=== PATIENT | male | born 1945 | race Caucasian/White ===

== ENCOUNTER 2024-03-11 14:03 | Outpatient (AMB) | payer OTHER, SELFPAY ==
--- NOTE | 2024-03-11 14:12 | A.OFFVIS_ITS ---
Vital Signs 03/11/24 14:21 Height 5 ft 10 in Weight 168 lb BMI 24.1 BP 138/84 Blood Pressure Location Rt brachial Position Sitting Intake Visit Reasons: ENP-Parkinson's Intake Note: Patient presents for parkinson's Medication List - Last Reconciled 03/11/24 by Minnie Mas MD acetaminophen 500 mg PO Q6H PRN bupropion HCl SR PO carbidopa-levodopa 50-200 mg ER 2 tabs PO QID cholecalciferol (vitamin D3) 50 mcg PO DAILY cyanocobalamin (vitamin B-12) 500 mcg PO DAILY docusate sodium 100 mg PO BID folic acid 1 mg PO DAILY lithium carbonate 300 mg PO BEDTIME lithium carbonate ER 450 mg PO BEDTIME loratadine 10 mg PO DAILY magnesium oxide 420 mg PO BID melatonin 3 mg PO BEDTIME PRN omeprazole 20 mg PO BID prazosin 1 mg PO BEDTIME simvastatin 5 mg PO BEDTIME HPI Comments Details: 79y/o Right handed male comes for further management of Parkinsons disease. He was diagnosed with Parkinsons by Dr. Mosley at [facility] when he presented with gait problems and slowness. He was started on sinemet and currently he is on 2 tabs qid He reports some word finding difficulties and memory issues He also has PTSD and has frequent nightmares and some active dreams. He has depression and anxiety which is well controlled now. He stays motivated, participate sin exercise classes. He has noticed a change in his speech- softer and has drooling His hand writing is smaller, he needs help with cutting his food, dressing showering etc. He uses a walker and has had a few falls. He also has some dizziness and occasional visual hallucinations. He denies any change in bowel movements. He has chronic back pain and some shooting pain down his legs He denies any numbness. [facility] Medical History (Updated 03/11/24 @ 15:08 by Minnie Mas MD) Back pain of lumbar region with sciatica Parkinsons disease Visual hallucinations Vertebrogenic low back pain Other unknown and unspecified cause of morbidity or mortality Tremor, unspecified Syncope and collapse Sleep apnea, unspecified Post-traumatic stress disorder, chronic Parkinsonism, unspecified Other migraine, not intractable, without status migrainosus Osteoarth NOS-unspec Ocular hypertension Memory loss Insomnia, unspecified Indeterminate colitis History of colonic polyps Dysphonia Dry mouth, unspecified Cortical senile cataract Contact with and (suspected) exposure to other hazardous substances Chronic sinusitis Chronic rhinitis Cervicalgia Bipolar disorder, current episode depressed, mild Abdominal pain Surgical History Hx of appendectomy Hx of cholecystectomy Social History Alcohol intake: never Patient Tobacco Use Status: Never used Tobacco Physical Exam Vital Signs: Last Vital Signs BP 138/84 03/11/24 14:21 BMI result Body Mass Index 24.1 Const General: cooperative, healthy appearing and comfortable Orientation/consciousness: patient oriented x3 HEENT Head: Yes normal to inspection Neck Other: mild antecollis and restricted range of motion Neuro Other: Mild decreased blink and facial expression slow tongue movements Voice- mild hypophonia mild action and posturla tremors Fine Finger movements - severely decreased campos R>L Alternating hand movements - decreased campos Hand movements - decreased campos Foot taps- decreased campos 3 +cog wheel rigidity Right UE 2 + left UE gait - with walker- off balance sloe General: patient oriented x3 Cranial nerves: Yes CN's II-XII intact bilaterally, Yes Bilaterally intact EOM present, Yes Normal facial strength present and Yes Midline tongue present Motor exam (neuro): 5/5 motor strength present throughout Deep tendon reflexes (DTR's): Right triceps reflex intensity grade: 2+, Left triceps reflex intensity grade: 2+, Rt Biceps (C5, C6): 2+, Left biceps reflex intensity grade: 2+, Right brachioradialis reflex intensity grade: 2+, Left brachioradialis reflex intensity grade: 2+, Right patellar reflex intensity grade: 4+, Left patellar reflex intensity grade: 4+, Right ankle reflex intensity grade: 4+ and Left ankle reflex intensity grade: 4+ Coordination: [id number] test normal Assessment & Plan Assessment & Plan (1) Parkinsons disease: Comment: ? parkinsonism due to medictaions Code(s): G20.A1 - Parkinson's disease without dyskinesia, without mention of fluctuations Category: Medical Qualifiers: Dyskinesia presence: without dyskinesia Fluctuating manifestations: without fluctuating manifestations Qualified Code(s): G20.A1 - Parkinson's disease without dyskinesia, without mention of fluctuations (2) Back pain of lumbar region with sciatica: Code(s): M54.40 - Lumbago with sciatica, unspecified side Category: Medical Plan Continue sinemet CR 50/200 2tabs qid Continue PT Discussed about diagnosis in detail MRI LS spine for spinal stenosis Coding Level of Care Code New Pt Level 4 (86403) Complex EM visit Add On G2211 Diagnoses Parkinson's disease without dyskinesia or fluctuating manifestations G20.A1 Dyskinesia presence: without dyskinesia Fluctuating manifestations: without fluctuating manifestations Back pain of lumbar region with sciatica M54.40
[2024-03-11 14:21] VITALS: BP 138/84; BMI 24.1
== END 2024-03-11 14:44 | disposition home or self-care (01) ==
LOC: HO.HSMS 14:04
PROVIDERS: PCP Psychiatry & Neurology Neurology; Visit Provider Psychiatry & Neurology Neurology
DX: G20.A1 Parkinson's disease without dyskinesia, without mention of fluctuations (principal); M54.40 Lumbago with sciatica, unspecified side
CPT/HCPCS: 99204; G2211

== ENCOUNTER → 2024-03-11 14:03 | Outpatient (BNVA) | payer OTHER, SELFPAY | PROVIDERS: PCP Psychiatry & Neurology Neurology; Visit Provider Psychiatry & Neurology Neurology | DX: G20.A1 Parkinson's disease without dyskinesia, without mention of fluctuations (principal); M54.40 Lumbago with sciatica, unspecified side; F43.10 Post-traumatic stress disorder, unspecified; F32.A Depression, unspecified; F41.9 Anxiety disorder, unspecified | CPT/HCPCS: 99202 ==

== ENCOUNTER 2024-08-18 14:01 | Outpatient (AMB) | payer OTHER, SELFPAY ==
--- NOTE | 2024-08-18 14:20 | MHC.OFFVIS ---
Vital Signs 08/18/24 14:21 Height 5 ft 10 in Weight 167 lb BMI 24.0 BP 130/72 Blood Pressure Location Rt brachial Position Sitting Pulse 77 Pulse Source Pulse Oximeter Pulse Oximetry (%) 94 Oxygen Delivery Method Room Air Intake Visit Reasons: follow up Parkinson's Intake Note: Patient presents follow up parkinson's. Allergies No Known Allergies Allergy (Verified 08/18/24 14:28) HPI Comments Details: 79y/o Right handed male comes for further management of Parkinsons disease. Interim Med hx: He had a fall 3 weeks ago in his apartment and hit his head, he went to [facility] ED, where he had a CT Scan and a full workup. He also received 4 indio on the top of his head parietal area for a 2 inch laceration. Orly, his home health aide helps with history. He was diagnosed with Parkins[place] by [place]. [place] when he presented with gait difficulties and bradykinesia. He was started on Sinemet and currently he is on 2 tabs qid at 9am, 1:45pm, 645pm, and 1045pm. Today we discussed medication administration of CD/LD without proteins and timing without meals with his homehealth aide Orly. He reports some word finding difficulties and memory issues, gets lost in conversations, forgets what day it is, and loses track of time. He lives in a Senior independent living, [facility] in [facility] [place]. He stays motivated, participates in exercise classes. He goes to PT 2 x a week, and OT 2 hours a week to help with mobility and active lifestyle, as he was a [employer] for 32 years. His home health aide Orly is present with him, M-F 8am -5pm. He has PTSD and frequent nightmares with some active dreams along with depression and anxiety which is well controlled now. He has noticed a change in his speech, hypophonia, denies drooling, and has dysphagia this causes him to chew slowly and consume soft foods or liquids His hand writing is smaller, he doesn't write or type anymore uses AI commands with his smart devices. He needs help with cutting up his food, dressing himself and showering etc. He uses a walker on good days, and a wheel chair 90% of the time. He has some dizziness when getting up from a chair, and occasional visual hallucinations of people who are not there, some encourage him saying he is safe and some who are very mean and awful to him. His diet is stable, he denies any changes in bowel movements, he drinks plenty of water and has a BM daily. He has chronic low back pain and some shooting pain down his legs with burning on the plantar surface bilaterally, he denies parasthesias. He jokes and smiles overall has a resiliant attitude about living with Parkinson. [facility] Medical History Back pain of lumbar region with sciatica Parkinsons disease Visual hallucinations Vertebrogenic low back pain Other unknown and unspecified cause of morbidity or mortality Tremor, unspecified Syncope and collapse Sleep apnea, unspecified Post-traumatic stress disorder, chronic Parkinsonism, unspecified Other migraine, not intractable, without status migrainosus Osteoarth NOS-unspec Ocular hypertension Memory loss Insomnia, unspecified Indeterminate colitis History of colonic polyps Dysphonia Dry mouth, unspecified Cortical senile cataract Contact with and (suspected) exposure to other hazardous substances Chronic sinusitis Chronic rhinitis Cervicalgia Bipolar disorder, current episode depressed, mild Abdominal pain Surgical History Hx of appendectomy Hx of cholecystectomy Social History Alcohol intake: never Patient Tobacco Use Status: Never used Tobacco Physical Exam Vital Signs: Last Vital Signs Pulse 77 08/18/24 14:21 BP 130/72 08/18/24 14:21 Pulse Ox 94 08/18/24 14:21 Oxygen Delivery Method Room Air 08/18/24 14:21 BMI result Body Mass Index 24.0 Const General: cooperative, healthy appearing and comfortable Orientation/consciousness: patient oriented x3 HEENT Head: Yes normal to inspection Neck Other: mild antecollis and restricted range of motion Neuro Other: Decreased blink and facial expression, blunt expression. Slow tongue movements. Voice hypophonia Action and postural tremors bilaterally R>L. Fine Finger movements - severely decreased campos R>L Alternating hand movements - decreased campos Hand movements - decreased campos Foot taps- decreased campos 3 +cog wheel rigidity Right UE 2 + left UE Gait walks with a lean, slow to ambulate, to wheel chair, absent hand swing with stopped posture. General: patient oriented x3 Cranial nerves: Yes CN's II-XII intact bilaterally, Yes Bilaterally intact EOM present, Yes Normal facial strength present, Yes Midline tongue present and Yes Other cranial nerve findings present (unable to flex or extend his neck, due to pain. Limited ROM on Lateral rot.) Motor exam (neuro): 5/5 motor strength present throughout Deep tendon reflexes (DTR's): Right triceps reflex intensity grade: 2+, Left triceps reflex intensity grade: 2+, Rt Biceps (C5, C6): 2+, Left biceps reflex intensity grade: 2+, Right brachioradialis reflex intensity grade: 2+, Left brachioradialis reflex intensity grade: 2+, Right patellar reflex intensity grade: 4+, Left patellar reflex intensity grade: 4+, Right ankle reflex intensity grade: 4+ and Left ankle reflex intensity grade: 4+ Coordination: [id number] test normal Psych Affect: Anxious affect present Attitude: cooperative Orientation What is the (year) (season) (date) (day) (month)?: year, season, date, day and month Where are we (state) (county) (town or city) (hospital) (floor)?: state, county, town or city, hospital/clinic and floor Registration Name of 3 unrelated objects clearly and slowly, then ask patient to repeat all 3 of them. (1st repeat determines score. Make sure they can repeat all three): object 1, object 2 and object 3 Attention & Calculation (CHOOSE ONE) Ask pt to begin with 100 & count backward by 7. Stop after 5 repeats. If pt cannot ask them to spell the word WORLD backward.: 93, 86, 79, 72 and 65 Language Show patient a wristwatch & ask what it is. Repeat for pencil.: watch and pencil Ask the patient to repeat the phrase 'No ifs, ands, or buts' after you.: correct Ask the patient to 'take a piece of paper with their right hand' 'fold paper in half' 'place paper on floor': take paper in right hand, fold paper in half and place paper on floor Print the sentence 'CLOSE YOUR EYES' on a piece. If patient actually closes eyes then score.: followed written direction Score Score: 25 Assessment & Plan Assessment & Plan (1) Fatigue: Code(s): R53.83 - Other fatigue Category: Medical Qualifiers: Fatigue type: chronic, unspecified Qualified Code(s): R53.82 - Chronic fatigue, unspecified (2) Postural tremor: Code(s): G25.2 - Other specified forms of tremor Category: Medical (3) Back pain of lumbar region with sciatica: Code(s): M54.40 - Lumbago with sciatica, unspecified side Category: Medical Plan Continue sinemet CR 50/200 2tabs qid Continue PT and OT as tolerable. Reviewed diagnosis and lifestyle changes for best outcomes. MRI LS spine for spinal stenosis ordered today Orders: Orders MR lumbar spine wo/w con Today M54.40 - Lumbago with sciatica, unspecified side Patient Instructions: Sleep Hygiene provided: set a scheduled bedtime and wake time to help regulate the circadian rhythm and balance the release of pituitary hormones. Sleep in a dark room, temperatures below 68 degrees, and no devices n bed. Limit caffeinated products 6 hours prior to bed, and limit fluids 2-4 hours prior to bed. Gentle night yoga, diffusing essential oils, and playing soft music can be relaxing. CD/LD administraiton: Patient Education provided to take Sinemet without protein products. Either take 30 min prior to meals or 2 hours after meals with a glass of juice or water, cracker or cookie, no proteins, milk, dairy, meat. MRI of Lower Spine: imaging? no available will f/u. Requested Records from [facility] ED, fall 3 weeks ago. Coding Level of Care Code Est Pt Level 4 (99109) Diagnoses Chronic fatigue R53.82 Fatigue type: chronic, unspecified Postural tremor G25.2 Back pain of lumbar region with sciatica M54.40 Time Spent (min) 30
[2024-08-18 14:21] VITALS: BP 130/72; PULSE 77; O2SAT 94; BMI 24.0
== END 2024-08-18 15:17 | disposition home or self-care (01) ==
LOC: HO.HSMS 14:01
PROVIDERS: PCP Psychiatry & Neurology Neurology; Referring Provider Physician Assistant Medical; Visit Provider Physician Assistant Medical
DX: R53.82 Chronic fatigue, unspecified (principal); G25.2 Other specified forms of tremor; M54.40 Lumbago with sciatica, unspecified side
CPT/HCPCS: 99214

== ENCOUNTER → 2024-08-18 14:01 | Outpatient (BNVA) | payer OTHER, SELFPAY | PROVIDERS: PCP Psychiatry & Neurology Neurology; Visit Provider Physician Assistant Medical | DX: G20.A1 Parkinson's disease without dyskinesia, without mention of fluctuations (principal); R53.82 Chronic fatigue, unspecified; M54.40 Lumbago with sciatica, unspecified side; G25.2 Other specified forms of tremor | CPT/HCPCS: 99212 ==

== ENCOUNTER 2024-11-17 13:09 | Outpatient (AMB) | payer OTHER, SELFPAY ==
[2024-11-17 13:43] VITALS: PULSE 70; O2SAT 96
--- NOTE | 2024-11-17 13:43 | A.OFFVIS_ITS ---
Vital Signs 11/17/24 13:43 Height 5 ft 10 in Pulse 70 Pulse Source Pulse Oximeter Pulse Oximetry (%) 96 Oxygen Delivery Method Room Air Intake Visit Reasons: 3 mnts f/u Intake Note: Patient presents follow up Sleep/Tremor. MRI in chart. Patient states has some days he doesn't get any tremors some days its constant. patient states he sleeps about 2-3 hrs per night. Accompanied by: Other Relationship Allergies No Known Allergies Allergy (Verified 11/17/24 13:48) HPI Comments Details: 79 y/o right handed male presents for management of Parkinsons disease. Orly, his home health aide helps with history, she is with him M-F 8am to 5pm daily. Interim Med hx: He says he doesn't fall but collapses in the afternoons usually and rolls into a fall due to his feet giving out from beneath him. He uses his walker as he gets into and out of the shower, requires lights, assistance with holding onto handle bars. He says he dozes in the afternoon multiple times and bangs his head onto the table. He uses his powered electric chair and now has an electric powered bed, easier to get into and out of the bed. October 2024, MRI S2/ fracture with degenerative changes and narrowing of spinal canal. Dr. Mosley at the [place] dx him with Parkinsons as he presented with gait difficulties and bradykinesia. He was started on Sinemet and currently he is on 2 tabs qid at 9am, 1:15pm, 4:30pm, and 1045pm. Medication administration of CD/LD without protein products discussed with Orly today and monitoring off/time. Sleep: 3-4 hours a night, and falls asleep at 1am and or 6am then naps through t he day, and takes prazosin per Dr. Zhao, [place]. Mood: Stable on lithium 750mg for PTSD and nightmares with active dreams of [place] War. Depression and anxiety. Hallucinations: VH of people, some encourage him he is safe and some who are very mean and awful to him. Memory: STM is poor, has word finding difficulties, gets lost in conversations, forgets the day of the week, loses track of time. Tremors: Bilateral R>L and LE. Pronounced tremors he pushes his hearing aid into the ear canal crushing it into the r. ear. Diet: He eats small portions, and is afraid of gaining weight so he passes on f ood options. Drooling: Denies drooling, dysphagia to solids and liquids, mindfully and slowly chews his food. Voice: Hypophonia, can not project his voice, he thinks he is screaming out loud when speaking in a normal voice. Housing: Senior independent living, [facility] in [facility] and is motivated, participates in exercise classes daily. He was an [employer] for 12 years and does PT 2/wk, and OT 2/ hrs /wk to improve his mobility and quality of life. ADLs needs assistance with all his ADLs, his hand writing is smaller, needs help with cutting up his food, dressing himself and showering etc. He uses AI commands with his smart devices. Ambulating: He uses a walker on good days, and his powered wheel chair 90% of the time. Orthostatic hypotension: Dizziness when getting up from a chair or a lying down to a seated position. BM: Denies constipation, has a BM daily, uses 100mg docusate BID daily, and denies nocturia. Pain:He has chronic low back pain and some shooting pain down his legs with burning on the plantar surface bilaterally, he denies parasthesias. [facility] Medical History Back pain of lumbar region with sciatica Parkinsons disease Visual hallucinations Vertebrogenic low back pain Other unknown and unspecified cause of morbidity or mortality Tremor, unspecified Syncope and collapse Sleep apnea, unspecified Post-traumatic stress disorder, chronic Parkinsonism, unspecified Other migraine, not intractable, without status migrainosus Osteoarth NOS-unspec Ocular hypertension Memory loss Insomnia, unspecified Indeterminate colitis History of colonic polyps Dysphonia Dry mouth, unspecified Cortical senile cataract Contact with and (suspected) exposure to other hazardous substances Chronic sinusitis Chronic rhinitis Cervicalgia Bipolar disorder, current episode depressed, mild Abdominal pain Surgical History Hx of appendectomy Hx of cholecystectomy Social History Alcohol intake: never Patient Tobacco Use Status: Never used Tobacco Physical Exam Vital Signs: Last Vital Signs Pulse 70 11/17/24 13:43 Pulse Ox 96 11/17/24 13:43 Oxygen Delivery Method Room Air 11/17/24 13:43 Const General: cooperative, healthy appearing and comfortable Orientation/consciousness: patient oriented x3 HEENT Head: Yes normal to inspection Neck Other: mild antecollis and restricted range of motion Neuro Other: Decreased blink and facial expression, blunt expression. Slow tongue movements. Voice hypophonia Action and postural tremors bilaterally R>L. Fine Finger movements - severely decreased campos R>L Alternating hand movements - decreased campos Hand movements - decreased campos Foot taps- decreased campos 3 +cog wheel rigidity Right UE 2 + left UE Gait walks with a lean, slow to ambulate, to wheel chair, absent hand swing with stopped posture. General: patient oriented x3 Cranial nerves: Yes CN's II-XII intact bilaterally, Yes Bilaterally intact EOM present, Yes Normal facial strength present, Yes Midline tongue present and Yes Other cranial nerve findings present (unable to flex or extend his neck, due to pain. Limited ROM on Lateral rot.) Motor exam (neuro): 5/5 motor strength present throughout Psych Affect: normal affect Attitude: cooperative Insight: Good insight present (Psych) Judgement: Good judgement present (Psych) Results Reviewed Results Reviewed: October 2024, MRI S2/ fracture with degenerative changes and narrowing of spinal canal. Assessment & Plan Assessment & Plan (1) Back pain of lumbar region with sciatica: Comment: pelvis fracture ? Code(s): M54.40 - Lumbago with sciatica, unspecified side Category: Medical (2) Fatigue: Code(s): R53.83 - Other fatigue Category: Medical Qualifiers: Fatigue type: chronic, unspecified Qualified Code(s): R53.82 - Chronic fatigue, unspecified (3) Postural tremor: Code(s): G25.2 - Other specified forms of tremor Category: Medical Plan Parkinsons disorder continue sinemet CR 50/200 2tabs qid, directions for administration of meds w/o protein products explained today. Continue PT and OT 2x/ week as tolerable, once cleared by MRI for possible sacrum fracture. Sleep diffiulties continue prazosin 1mg po and melatonin 3 mg po at bedtime RLS continue gabapentin and magnesium 420mg po BID. Mood irritabilty continue lithium 750mg po daily MRI for possible s2/ pelvis fracture spine for spinal stenosis ordered today. Patient Instructions: Sleep Hygiene provided: set a scheduled bedtime and wake time to help regulate the circadian rhythm and balance the release of pituitary hormones. Sleep in a dark room, temperatures below 68 degrees, and no devices n bed. Limit caffeinated products 6 hours prior to bed, and limit fluids 2-4 hours prior to bed. Gentle night yoga, diffusing essential oils, and playing soft music can be relaxing. Coding Level of Care Code Est Pt Level 4 (38981) Diagnoses Back pain of lumbar region with sciatica M54.40 Chronic fatigue R53.82 Fatigue type: chronic, unspecified Postural tremor G25.2 Time Spent (min) 25 Comment MRI review
== END 2024-11-17 14:48 | disposition home or self-care (01) ==
LOC: HO.HSMS 13:10
PROVIDERS: PCP Psychiatry & Neurology Neurology; Referring Provider Physician Assistant Medical; Visit Provider Physician Assistant Medical
DX: M54.40 Lumbago with sciatica, unspecified side (principal); R53.82 Chronic fatigue, unspecified; G25.2 Other specified forms of tremor
CPT/HCPCS: 99214

== ENCOUNTER → 2024-11-17 13:09 | Outpatient (BNVA) | payer OTHER, SELFPAY | PROVIDERS: PCP Psychiatry & Neurology Neurology; Visit Provider Physician Assistant Medical | DX: M54.50 Low back pain, unspecified (principal); R53.82 Chronic fatigue, unspecified; G25.2 Other specified forms of tremor | CPT/HCPCS: 99212 ==

== ENCOUNTER 2024-11-28 14:51 | Outpatient (REF) | payer OTHER, SELFPAY ==
--- NOTE | ~2024-11-28 | MR_ITS ---
EXAMINATION: MR PELVIS WITH CONTRAST TECHNIQUE: Multiplanar multisequence MR imaging of the pelvis without contrast INDICATION: M54.9 - Dorsalgia, unspecified Prior: None FINDINGS: Articular Cartilage/Joint fluid: There is mildly increased synovial fluid in the right greater than left hip joints. Hip joint cartilage is grossly preserved. There is no SI joint effusion. Ligament/Muscle/Tendon: Bilateral ligamentum teres are intact. Gluteus medius and minimus tendons are intact. Proximal hamstring tendons are unremarkable. There is streaky fluid signal in the right hip adductors. There is no fatty streaking. Neurovascular: Major neurovascular structures are unremarkable and symmetrical. Deep and superficial soft tissues: There is moderate ascites. Visualized bowel is grossly unremarkable. Subcutaneous soft tissues are within normal limits. There is no adenopathy. There is a simple renal cysts involving lower pole right kidney. Bones/Marrow: Bone marrow signal is physiologic. SI joints are symmetrical without erosions, or ankylosis. Pubic symphysis joint is unremarkable. Sacrum and coccyx are unremarkable. MR/MR pelvis wo con IMPRESSION: Streaky edema like signal in the right hip adductor muscle group is likely related to a grade 1 strain. There is moderate ascites. Etiology is unknown, potential sources could include cirrhosis, trauma, infection, etc. Notified SHERLEY Galeano via [place] Borderline to mild hip joint effusions, right greater than left. Electronically signed by: Saulo Wooten MD 11/28/2024 04:00 PM EDT
== END 2024-11-28 14:52 | disposition home or self-care (01) ==
LOC: HO.MRI 14:51
PROVIDERS: Visit Provider Physician Assistant Medical
DX: M54.40 Lumbago with sciatica, unspecified side (principal)
CPT/HCPCS: 72195

== ENCOUNTER → 2024-11-28 15:00 | Outpatient (BNV) | payer OTHER, SELFPAY | PROVIDERS: Visit Provider Radiology Diagnostic Radiology | DX: R18.8 Other ascites (principal) | CPT/HCPCS: 72195 ==

== ENCOUNTER 2025-02-17 13:49 | Outpatient (AMB) | payer OTHER, SELFPAY ==
--- NOTE | 2025-02-17 13:49 | A.OFFVIS_ITS ---
Vital Signs 02/17/25 13:50 Height 5 ft 10 in BP 128/84 Blood Pressure Location Lt brachial Position Sitting Pulse 80 Pulse Source Pulse Oximeter Pulse Oximetry (%) 95 Oxygen Delivery Method Room Air Intake Visit Reasons: 3 mo follow up Intake Note: Follow up Postural tremor, back pain and fatigue last seen Venancio Heller Electronic Test Technician Required: No Allergies No Known Allergies Allergy (Verified 02/17/25 13:50) HPI Comments Details: 80 y/o right handed male presents for management of Parkinsons disease. Orly, his home health aide helps with history, she is with him M-F 8am to 5pm daily. he reports hallucinations - none in the past week.sleeping is better. walks with a therapist 3-4 times a day with a walker He needs help with personal hygiene and shower. Interim Med hx: He says he doesn't fall but collapses in the afternoons usually and rolls into a fall due to his feet giving out from beneath him. He uses his walker as he gets into and out of the shower, requires lights, assistance with holding onto handle bars. He says he dozes in the afternoon multiple times and bangs his head onto the table. He uses his powered electric chair and now has an electric powered bed, easier to get into and out of the bed. October 2024, MRI S2/ fracture with degenerative changes and narrowing of spinal canal. Dr. Mosley at the [place] dx him with Parkinsons as he presented with gait difficulties and bradykinesia. He was started on Sinemet 50/200 currently he is on 2 tabs qid at 9am, 1:15pm, 4:30pm, and 1045pm. Medication administration of CD/LD without protein products discussed with Orly today and monitoring off/time. Sleep: 3-4 hours a night, and falls asleep at 1am and or 6am then naps through the day, and takes prazosin per Dr. Zhao, [place]. Mood: Stable on lithium 750mg for PTSD and nightmares with active dreams of [place] War. Depression and anxiety. Hallucinations: VH of people, some encourage him he is safe and some who are very mean and awful to him. Memory: STM is poor, has word finding difficulties, gets lost in conversations, forgets the day of the week, loses track of time. Tremors: Bilateral R>L and LE. Pronounced tremors he pushes his hearing aid into the ear canal crushing it into the r. ear. Diet: He eats small portions, and is afraid of gaining weight so he passes on food options. Drooling: Denies drooling, dysphagia to solids and liquids, mindfully and slowly chews his food. Voice: Hypophonia, can not project his voice, he thinks he is screaming out loud when speaking in a normal voice. Housing: Senior independent living, [facility] in [facility] and is motivated, participates in exercise classes daily. He was an [employer] for 12 years and does PT 2/wk, and OT 2/ hrs /wk to improve his mobility and quality of life. ADLs needs assistance with all his ADLs, his hand writing is smaller, needs help with cutting up his food, dressing himself and showering etc. He uses AI commands with his smart devices. Ambulating: He uses a walker on good days, and his powered wheel chair 90% of the time. Orthostatic hypotension: Dizziness when getting up from a chair or a lying down to a seated position. BM: Denies constipation, has a BM daily, uses 100mg docusate BID daily, and denies nocturia. Pain:He has chronic low back pain and some shooting pain down his legs with burning on the plantar surface bilaterally, he denies parasthesias. [facility] Medical History Restless legs syndrome (RLS) Back pain of lumbar region with sciatica Parkinsons disease Visual hallucinations Vertebrogenic low back pain Other unknown and unspecified cause of morbidity or mortality Tremor, unspecified Syncope and collapse Sleep apnea, unspecified Post-traumatic stress disorder, chronic Parkinsonism, unspecified Other migraine, not intractable, without status migrainosus Osteoarth NOS-unspec Ocular hypertension Memory loss Insomnia, unspecified Indeterminate colitis History of colonic polyps Dysphonia Dry mouth, unspecified Cortical senile cataract Contact with and (suspected) exposure to other hazardous substances Chronic sinusitis Chronic rhinitis Cervicalgia Bipolar disorder, current episode depressed, mild Abdominal pain Surgical History Hx of appendectomy Hx of cholecystectomy Social History Alcohol intake: never Patient Tobacco Use Status: Never used Tobacco Physical Exam Const General: cooperative, healthy appearing and comfortable Orientation/consciousness: patient oriented x3 HEENT Head: Yes normal to inspection Neck Other: mild antecollis and restricted range of motion Neuro Other: Decreased blink and facial expression, blunt expression. Slow tongue movements. Good voice No tremors bilaterally Fine Finger movements - mild decreased campos R>L Alternating hand movements - decreased campos Hand movements - decreased campos Foot taps- decreased campos 1 +cog wheel rigidity Right UE 1 + left UE Gait- not evaluated . He came in a stretcher as the facility did not have a wheel chair. General: patient oriented x3 Cranial nerves: Yes CN's II-XII intact bilaterally, Yes Bilaterally intact EOM present, Yes Normal facial strength present, Yes Midline tongue present and Yes Other cranial nerve findings present (unable to flex or extend his neck, due to pain. Limited ROM on Lateral rot.) Motor exam (neuro): 5/5 motor strength present throughout Psych Affect: normal affect Attitude: cooperative Insight: Good insight present (Psych) Judgement: Good judgement present (Psych) Assessment & Plan Assessment & Plan (1) Parkinsons disease: Comment: ? parkinsonism due to medictaions Code(s): G20.A1 - Parkinson's disease without dyskinesia, without mention of fluctuations Category: Medical Qualifiers: Dyskinesia presence: without dyskinesia Fluctuating manifestations: without fluctuating manifestations Qualified Code(s): G20.A1 - Parkinson's disease without dyskinesia, without mention of fluctuations (2) Restless legs syndrome (RLS): Code(s): G25.81 - Restless legs syndrome Category: Medical Plan Parkinsons disorder continue sinemet CR 50/200 2tabs qid, directions for administration of meds w/o protein products explained today. Continue PT and OT 2x/ week as tolerable, Sleep diffiulties continue prazosin 1mg po and melatonin 3 mg po at bedtime RLS continue gabapentin and magnesium 420mg po BID. Mood irritabilty continue lithium 750mg po daily Coding Level of Care Code Est Pt Level 4 (69780) Complex EM visit Add On G2211 Diagnoses Parkinson's disease without dyskinesia or fluctuating manifestations G20.A1 Dyskinesia presence: without dyskinesia Fluctuating manifestations: without fluctuating manifestations Restless legs syndrome (RLS) G25.81
[2025-02-17 13:50] VITALS: BP 128/84; PULSE 80; O2SAT 95
== END 2025-02-17 14:14 | disposition home or self-care (01) ==
LOC: HO.HSMS 13:49
PROVIDERS: Referring Provider Psychiatry & Neurology Neurology; Visit Provider Psychiatry & Neurology Neurology
DX: G20.A1 Parkinson's disease without dyskinesia, without mention of fluctuations (principal); G25.81 Restless legs syndrome
CPT/HCPCS: 99214; G2211

== ENCOUNTER → 2025-02-17 13:49 | Outpatient (BNVA) | payer OTHER, SELFPAY | PROVIDERS: Visit Provider Psychiatry & Neurology Neurology | DX: G20.A1 Parkinson's disease without dyskinesia, without mention of fluctuations (principal); G25.81 Restless legs syndrome | CPT/HCPCS: 99212 ==